=== PATIENT | male | born 1990 | race Caucasian/White ===

== ENCOUNTER 2016-11-20 20:14 | Emergency (ER) | payer OTHER ==
[~2016-11-20] VITALS: Ht 180.3 cm; Wt 104.3 kg
[~2016-11-20 20:14] MED LIST: NOHOMEMEDICATIONS
[2016-11-20] MEDS ORDERED: PROMS25 WY RECTAL (20:42)
[2016-11-20] MEDS ORDERED: PHENERGAN 25 MG25 M1 PO (20:42)
[2016-11-20 22:19] VITALS: BP 126/70
== END 2016-11-20 22:20 | disposition home or self-care (01) ==
LOC: ER 20:14
DX: R51 Headache (principal); R11.2 Nausea with vomiting, unspecified; F17.210 Nicotine dependence, cigarettes, uncomplicated